=== PATIENT | female | born 1975 | race Caucasian/White ===

== ENCOUNTER → 2020-03-06 14:00 | Outpatient (BNVA) | payer BC, SELFPAY | PROVIDERS: Visit Provider Nurse Practitioner Family | DX: Z20.828 Contact with and (suspected) exposure to other viral communicable diseases (principal); R09.81 Nasal congestion; R53.83 Other fatigue | CPT/HCPCS: 87635 ==

== ENCOUNTER 2020-07-25 08:05 | Outpatient (CLI) | payer BC, SELFPAY ==
[2020-07-27 09:03] LABS: Coronavirus Lab Test PTC Positive
== END 2020-07-25 08:06 | disposition home or self-care (01) ==
LOC: ER 08:07 → LAB 08:29
PROVIDERS: Visit Provider Family Medicine
DX: U07.1 COVID-19 (principal)
CPT/HCPCS: 87635

== ENCOUNTER 2021-01-16 09:56 | Outpatient (CLI) | payer OTHER, SELFPAY ==
--- NOTE | 2021-01-16 10:02 | MM_ITS ---
WS: [id number] BILATERAL DIGITAL SCREENING MAMMOGRAPHY WITH CAD CLINICAL INFORMATION: SCREENING HISTORY: Screening mammogram. No current complaints. COMPARISON: TECHNIQUE: Bilateral CC and MLO views. FINDINGS: The breasts are composed of heterogeneous fibroglandular density tissue, which can limit the detectio n of small underlying mass lesions. Punctate and lucent centered calcifications. No suspicious mass, asymmetry, calcifications, or architectural distortion. No evidence of malignancy. MM/[place] [id number] IMPRESSION: BI-RADS: 2-Benign FOLLOW UP: 1 Year Follow-up Recommend return to annual screening mammography.
== END 2021-01-16 09:57 | disposition home or self-care (01) ==
LOC: RADSHAW 10:00
PROVIDERS: PCP Nurse Practitioner Family; Visit Provider Nurse Practitioner Family
DX: Z12.31 Encounter for screening mammogram for malignant neoplasm of breast (principal)
CPT/HCPCS: 77067

== ENCOUNTER → 2022-08-18 15:19 | Outpatient (BNVA) | payer OTHER, SELFPAY | PROVIDERS: PCP Clinical Nurse Specialist Adult Health; Visit Provider Clinical Nurse Specialist Adult Health | DX: Z00.00 Encounter for general adult medical examination without abnormal findings (principal) | CPT/HCPCS: 80053; 83540; 84443; 85025 ==

== ENCOUNTER → 2025-03-22 14:22 | Outpatient (BNVA) | payer OTHER, SELFPAY | PROVIDERS: PCP Clinical Nurse Specialist Adult Health; Visit Provider Podiatrist Foot & Ankle Surgery | DX: M79.671 Pain in right foot (principal); M76.61 Achilles tendinitis, right leg; M25.571 Pain in right ankle and joints of right foot | CPT/HCPCS: 73630 ==

== ENCOUNTER 2025-04-05 07:01 | Outpatient (CLI) | payer OTHER, SELFPAY ==
--- NOTE | 2025-04-05 07:15 | MR_ITS ---
WS: [id number] MRI RIGHT FOOT WITHOUT CONTRAST. COMPARISON: 07/06/2018, radiograph 03/22/2025 Multiplanar, multisequence imaging is performed without contrast. MRI is performed centered over the hindfoot due to the location of the abnormality. Achilles tendon: Focal thickening of the Achilles tendon measuring 10.9 mm in anterior posterior diameter. Tending thickness is greatest 4.2 cm above the calcaneal insertion site. New finding since the prior examination. Mild intermediate streaky linear signal in the central Achilles tendon. There is no full-thickness or partial tear. There is a small amount of edema along the anterior margin of the Achilles tendon. No Geno deformity. No insertional enthesopathy identified. No retrocalcaneal bursitis. No fractures or marrow signal abnormality. No osteochondral lesions along the talar dome. Peroneal tendons, flexor digitorum and flexor hallucis longus and the posterior tibialis tendons are normal. Extensor tendons are normal. Normal appearance of the ankle syndesmosis. Anterior inferior and posterior inferior tibiofibular ligaments are intact. There is some increased signal variability within the posterior talofibular ligament which is probably from prior injury. The anterior talofibular ligament is normal. MR/MR foot RT wo con* [id number] IMPRESSION: 1. Mild thickening with heterogeneity in the distal Achilles tendon. Maximum t hickening of the tendon is 4.2 cm above the calcaneal insertion. Most consisten t with tendinopathy. There is a small amount of edema along the anterior Achill es tendon. No full-thickness tear. 2. No insertional site enthesopathy or Geno's deformity.
== END 2025-04-05 07:02 | disposition home or self-care (01) ==
LOC: RAD 07:02
PROVIDERS: Visit Provider Podiatrist Foot & Ankle Surgery
DX: S86.011A Strain of right Achilles tendon, initial encounter (principal); R60.0 Localized edema; X58.XXXA Exposure to other specified factors, initial encounter
CPT/HCPCS: 73718

== ENCOUNTER 2025-04-26 13:55 | Outpatient (RCR) | payer OTHER, SELFPAY | END 2025-05-09 23:59 | disposition home or self-care (01) | LOC: SPT 13:55 | PROVIDERS: Visit Provider Podiatrist Foot & Ankle Surgery | DX: S86.001S Unspecified injury of right Achilles tendon, sequela (principal); X58.XXXS Exposure to other specified factors, sequela | CPT/HCPCS: 97110; 97140; 97161 ==

== ENCOUNTER → 2025-05-03 10:56 | Outpatient (BNVA) | payer OTHER, SELFPAY | PROVIDERS: PCP Family Medicine; Visit Provider Family Medicine | DX: Z00.00 Encounter for general adult medical examination without abnormal findings (principal) | CPT/HCPCS: 80053; 80061; 82306; 82607; 83735; 84443; 85025 ==

== ENCOUNTER 2025-05-10 05:00 | Outpatient (RCR) | payer OTHER, SELFPAY | END 2025-06-09 23:59 | disposition home or self-care (01) | LOC: SPT 05:00 | PROVIDERS: PCP Family Medicine; Visit Provider Podiatrist Foot & Ankle Surgery | DX: M76.61 Achilles tendinitis, right leg (principal) | CPT/HCPCS: 97110; 97140 ==

== ENCOUNTER 2025-05-16 11:19 | Outpatient (CLI) | payer OTHER, SELFPAY ==
--- NOTE | 2025-05-16 11:20 | MM_ITS ---
WS: [id number] BILATERAL 3D TOMOSYNTHESIS DIGITAL SCREENING MAMMOGRAPHY WITH CAD CLINICAL INFORMATION: breast cancer screen HISTORY: Screening mammogram. No current complaints. COMPARISON: 2020 TECHNIQUE: Bilateral CC and MLO views. FINDINGS: The breasts are composed of heterogeneous fibroglandular density tissue, which can limit the detection of small underlying mass lesions. No suspicious mass, asymmetry, calcifications, or architectural distortion. No evidence of malignancy. A few incidental punctate calcifications. MM/MM [facility] tomosynthesis [id number] IMPRESSION: DENSITY: The breasts are heterogeneously dense, which may obscure small masses. BI-RADS: 2 - Benign FOLLOW UP: 1 Year Follow-up Recommend return to annual screening mammography.
== END 2025-05-16 11:20 | disposition home or self-care (01) ==
LOC: RAD 11:20
PROVIDERS: PCP Family Medicine; Visit Provider Family Medicine
DX: Z12.31 Encounter for screening mammogram for malignant neoplasm of breast (principal); R92.323 Mammographic fibroglandular density, bilateral breasts; R92.333 Mammographic heterogeneous density, bilateral breasts; R92.1 Mammographic calcification found on diagnostic imaging of breast
CPT/HCPCS: 77063; 77067

== ENCOUNTER 2025-06-10 06:30 | Outpatient (RCR) | payer OTHER, SELFPAY | END 2025-06-26 09:50 | disposition home or self-care (01) | LOC: SPT 06:30 | PROVIDERS: PCP Family Medicine; Visit Provider Podiatrist Foot & Ankle Surgery | DX: S86.001S Unspecified injury of right Achilles tendon, sequela (principal); X58.XXXS Exposure to other specified factors, sequela | CPT/HCPCS: 97110 ==